=== PATIENT | female | born 1970 | race Caucasian/White ===

== ENCOUNTER 2018-10-23 23:52 | Emergency (ER) | payer MEDICAID, OTHER ==
[~2018-10-23] VITALS: Ht 154.9 cm; Wt 104.3 kg
[2018-10-24] MEDS ORDERED: IBUPROFEN 200 MG TABLET PO ONE
[2018-10-24] MEDS ORDERED: IBUPROFEN 600 MG TABLET ONE ×2 (00:02→00:03)
--- NOTE | 2018-10-24 00:04 | NUR ---
PT STATES TOOK 650 TYLENOL 1 HOUR AGO, MED WITH MOTRIN IN TRIAGE
--- NOTE | 2018-10-24 00:43 | NUR ---
pt called to room from lobby
[2018-10-24] MEDS ORDERED: AZITHROMYCIN 250 MG TABLET ONE (01:37)
[2018-10-24 01:58] VITALS: BP 133/75
[2018-10-24] MEDS ORDERED: AZITHROMYCIN 500 MG TABLET PO ONE (02:00)
== END 2018-10-24 02:00 | disposition home or self-care (01) ==
LOC: ED 10-24 01:40
DX: J15.9 Unspecified bacterial pneumonia (principal); F17.200 Nicotine dependence, unspecified, uncomplicated
CPT/HCPCS: 71046; 99283